=== PATIENT | male | born 1985 | race Caucasian/White ===

== ENCOUNTER 2020-11-27 22:33 | Emergency (ER) | payer OTHER ==
[~2020-11-27 22:33] MED LIST: DIFLUCAN 100MG100 MG PO; KEFLEX500 MG PO; NYSTATIN1 EAC9 TOP
[2020-11-27] MEDS ORDERED: MEDROL 4MG DOSEP4 MG PO (23:20)
== END 2020-11-27 23:39 | disposition home or self-care (01) ==
LOC: FER 22:33
DX: M54.5 Low back pain (principal); F17.200 Nicotine dependence, unspecified, uncomplicated
CPT/HCPCS: J1885

== ENCOUNTER 2021-03-20 09:51 | Emergency (ER) | payer OTHER ==
[~2021-03-20 09:51] MED LIST changes: +MEDROL 4MG DOSEP4 MG PO
[2021-03-20] MEDS ORDERED: NAPROXEN500 MG PO (12:50)
[2021-03-20] MEDS ORDERED: BACLOFEN 10MG T10 MG PO (12:50)
== END 2021-03-20 13:53 | disposition home or self-care (01) ==
LOC: FER 09:51
DX: M54.42 Lumbago with sciatica, left side (principal); F17.210 Nicotine dependence, cigarettes, uncomplicated
CPT/HCPCS: 96372; 99283; J1100; J1885